=== PATIENT | male | born 2000 | race Caucasian/White ===

== ENCOUNTER → 2023-01-28 | Emergency (ER) | payer MEDICAID ==
[~2023-01-28] VITALS: Ht 182.9 cm; Wt 61.2 kg
[2023-01-28 13:47] VITALS: BP 124/75; PULSE 56; RESP 17; TEMP 97; O2SAT 99
== END | disposition home or self-care (01) ==
LOC: MED 13:32
DX: R51.9 Headache, unspecified (principal); Z53.21 Procedure and treatment not carried out due to patient leaving prior to being seen by health care provider
CPT/HCPCS: 99281

== ENCOUNTER 2023-06-23 20:26 | Emergency (ER) | payer MEDICAID, OTHER ==
[~2023-06-23] VITALS: Ht 182.9 cm; Wt 57.6 kg
[2023-06-23 20:30] VITALS: BP 143/78; PULSE 85; RESP 18; TEMP 98.2; O2SAT 99
[2023-06-23 23:00] VITALS: O2SAT 99
[2023-06-24] MEDS ORDERED: NAPR-54 PO (00:10)
== END 2023-06-24 00:25 | disposition home or self-care (01) ==
LOC: MED 20:26
DX: R07.89 Other chest pain (principal)
CPT/HCPCS: 71101; 93005; 99283